=== PATIENT | male | born 1965 | race Two or more races ===

== ENCOUNTER 2020-07-13 11:17 | Emergency (ER) | payer OTHER ==
[~2020-07-13] VITALS: Ht 180.3 cm; Wt 84.8 kg
[2020-07-13] MEDS ORDERED: PEPCID AC10 MG (12:00)
== END 2020-07-13 23:16 | disposition home or self-care (01) ==
LOC: ER 11:17
DX: R11.10 Vomiting, unspecified (principal); R41.0 Disorientation, unspecified; Z03.818 Encounter for observation for suspected exposure to other biological agents ruled out